=== PATIENT | male | born 1960 | race Caucasian/White ===

== ENCOUNTER → 2023-08-25 | Outpatient (REF) | LOC: M PLAIMG 10:28 | PROVIDERS: ATTEND Internal Medicine | DX: R52 Pain, unspecified (principal) ==

== ENCOUNTER 2025-07-20 11:35 | Observation (INO) | payer MEDICARE, MEDICAID ==
[~2025-07-20] VITALS: Ht 180.3 cm; Wt 77.1 kg
[~2025-07-20 11:35] MED LIST: ASPI81TA26 PO; ATOR1TAB19 PO; CEFD1CAP9 PO; COLA100C5 PO; ELIQ5TAB PO; LEVOTAB10 PO; LEXA1TAB2 PO; LEXA5TAB13 PO; MYCO250C PO; PANT40TA29 PO; PRED5TA PO; PREG50CA3 PO; REXU1TAB4 PO; RIME75TA SL; ROPI2TAB46 PO; STEG15TA PO; TACR1CAP3 PO; TAMS-18 PO; TAMS1CAP17 PO; URSO1TAB2 PO; med rec comment
[2025-07-20] MEDS: NS 500 ML IV ONE (13:59)
[2025-07-20 14:07] LABS: BASO # 0.0 10^3/uL (0.0-0.2); BASO % 0.5 % (0.0-1.0); EOS # 0.0 10^3/uL (0.0-0.5); EOS % 0.2 % (0.0-3.0); LYMPH # 0.3 10^3/uL (1.5-5.0); LYMPH % 5.7 % (24.0-44.0); MONO # 0.5 10^3/uL (0.0-0.8); MONO % 8.7 % (2.0-8.0); NEUTROPHILS # 4.9 10^3/uL (1.5-8.5); NEUTROPHILS % 84.6 % (36.0-66.0); PLATELET COUNT, AUTOMATED 158 10^3/uL (150-450)
[2025-07-20 14:36] LABS: CK-MB VALUE MASS 1.1 NG/ML (<3.6)
[2025-07-20 14:37] LABS: CALCIUM LEVEL 8.8 MG/DL (8.3-10.6); CARBON DIOXIDE LEVEL 29.0 MMOL/L (20-31); CHLORIDE LEVEL 105.0 MMOL/L (98-107); CREATININE FOR GFR 1.06 MG/DL (0.70-1.30); GLOMERULAR FILTRATION RATE 78.4 (>49); POTASSIUM SERUM 4.6 MMOL/L (3.5-5.1); SODIUM LEVEL 142.0 MMOL/L (136-145)
[2025-07-20 14:38] LABS: INR 1.17
[2025-07-20 14:40] LABS: ALT/SGPT 18 U/L (7.0-40); AST/SGOT 16 U/L (<34); C REACTIVE PROTEIN QUANTITATIV < 0.50 MG/DL (<1.0); CPK CREATINE PHOSPHOKINASE 27 U/L (46-171); MB/CK RELATIVE INDEX 4.07 (< OR =4)
[2025-07-20 14:54] LABS: KETONE, URINE AUTO RFX NEGATIVE (NEGATIVE); LEUKOCYTE ESTERASE UR AUTO RFX NEGATIVE (NEGATIVE); NITRITE, URINE AUTO RFX NEGATIVE (NEGATIVE); RBC, URINE AUTO RFX 0 /HPF (0-3); SQUAM EPITHELIAL CELL UR AURFX 0 /HPF (0-6); WBC, URINE AUTO RFX 2 /HPF (0-3)
[2025-07-20] MEDS: NS (Normal Saline) 0.9% 1,000 ML IV ONE (15:20)
[2025-07-20 15:39] LABS: CK-MB VALUE MASS 1.1 NG/ML (<3.6)
[2025-07-20 15:41] LABS: CPK CREATINE PHOSPHOKINASE 27 U/L (46-171); MB/CK RELATIVE INDEX 4.07 (< OR =4)
[2025-07-20] MEDS ORDERED: DEXTROSE 50% 50 ML SYRINGE IV PRN (17:15)
[2025-07-20] MEDS ORDERED: GLUCOSE 4 GM CHEW PO PRN (17:15)
[2025-07-20] MEDS ORDERED: GLUCAGON INJ 1 MG VIAL SC PRN (17:15)
[2025-07-20] MEDS: INSULIN LISPRO (NovoLOG) PER UNIT SC SCH ×2 (17:30→20:52)
[2025-07-20] MEDS ORDERED: HOME MED LIST COMPLETE! XX SCH (17:55)
[2025-07-20 18:24] LABS: ESTIMATED AVERAGE GLUCOSE 194.0 MG/DL (60-110)
[2025-07-20] MEDS: APIXABAN 5 MG TAB PO SCH (20:59)
[2025-07-20] MEDS: PREGABALIN 50 MG CAP PO SCH (20:59)
[2025-07-20] MEDS: MYCOPHENOLATE MOFETIL 250 MG CAP (J7517) PO SCH (20:59)
[2025-07-20] MEDS: ATORVASTATIN 10 MG TAB PO SCH (20:59)
[2025-07-20] MEDS: TACROLIMUS 1MG CAP PO SCH (21:00)
[2025-07-21 06:36] LABS: PLATELET COUNT, AUTOMATED 135 10^3/uL (150-450)
[2025-07-21 07:09] LABS: ALT/SGPT 14.0 U/L (7.0-40); AST/SGOT 13.0 U/L (<34); CALCIUM LEVEL 8.3 MG/DL (8.3-10.6); CARBON DIOXIDE LEVEL 23.0 MMOL/L (20-31); CHLORIDE LEVEL 106.0 MMOL/L (98-107); CREATININE FOR GFR 0.97 MG/DL (0.70-1.30); GLOMERULAR FILTRATION RATE 87.2 (>49); POTASSIUM SERUM 4.6 MMOL/L (3.5-5.1); SODIUM LEVEL 139.0 MMOL/L (136-145)
[2025-07-21 07:28] VITALS: BP 159/79; TEMP 98.4; O2SAT 97
[2025-07-21 08:00] VITALS: BP 159/79
[2025-07-21] MEDS: MIDODRINE 5 MG TAB PO SCH (08:00)
[2025-07-21] MEDS ORDERED: MIDO2.5T3 PO (08:48)
[2025-07-21] MEDS: TAMSULOSIN 0.4 MG CAP PO SCH (09:09)
[2025-07-21] MEDS: PANTOPRAZOLE 40MG TAB PO SCH (09:10)
[2025-07-21] MEDS: ESCITALOPRAM OXALATE 10 MG TABLET PO SCH (09:10)
[2025-07-21] MEDS: DOCUSATE SODIUM 100 MG CAPSULE PO SCH (09:10)
[2025-07-21] MEDS: ASPIRIN 81 MG ENTERIC TABLET PO SCH (09:10)
== END 2025-07-21 10:52 | disposition home or self-care (01) ==
LOC: EDBD 11:35 → M ED 11:35 → M ED INP 17:25 → M MS4PR 07-21 07:29
PROVIDERS: ADMIT Internal Medicine; ATTEND Internal Medicine
DX: I95.1 Orthostatic hypotension (principal); R42 Dizziness and giddiness; R63.8 Other symptoms and signs concerning food and fluid intake; R11.0 Nausea; R53.83 Other fatigue; E11.9 Type 2 diabetes mellitus without complications; I44.1 Atrioventricular block, second degree; I47.10 Supraventricular tachycardia, unspecified; J30.1 Allergic rhinitis due to pollen; K75.4 Autoimmune hepatitis; Z94.4 Liver transplant status; Z86.73 Personal history of transient ischemic attack (TIA), and cerebral infarction without residual deficits; Z79.899 Other long term (current) drug therapy; Z79.01 Long term (current) use of anticoagulants; Z79.82 Long term (current) use of aspirin; Z79.52 Long term (current) use of systemic steroids
CPT/HCPCS: 36415; 71045; 80048; 80053; 80076; 81001; 82140; 82150; 82550; 82553; 83036; 83605; 84145; 84484; 85025; 85027; 85610; 85652; 85730; 86140; 86850; 86900; 86901; 87040; 87486; 87581; 87633; 87798; 93005; 93041; 94760; 96360; 96361; 97161; 99285; G0378; J7507; J7512; J7517